=== PATIENT | male | born 1960 | race Caucasian/White ===

== ENCOUNTER 2022-08-27 09:41 | Outpatient (CLI) | payer MEDICAID, SELFPAY ==
[2022-08-27 15:21] LABS: Albumin* 4.5 g/dL (3.3-5.0); Chloride* 105 mmol/L (96-114); Potassium* 4.8 mmol/L (3.6-5.1); Sodium* 140 mmol/L (135-149)
[2022-08-27 15:23] LABS: Creatinine* 0.7 mg/dL (0.5-1.5); Estimated Glomerular Filt Rate 104 ml/min
[2022-08-27 15:24] LABS: Alanine Aminotransferase* 33 U/L (4-50); Alkaline Phosphatase* 74 U/L (40-150); Aspartate Amino Transferase* 36 U/L (12-35); Bilirubin Total* 0.8 mg/dL (0.1-1.5); Blood Urea Nitrogen* 15 mg/dL (7-30); Carbon Dioxide* 29 mmol/L (20-32); Glucose* 92 mg/dL (60-115); Total Protein* 7.3 g/dL (6.0-8.3); Triglycerides* 178 mg/dL (40-149)
[2022-08-27 15:25] LABS: Calcium* 9.2 mg/dL (8.4-10.6); HDL Cholesterol* 40 mg/dL (>=40)
[2022-08-27 15:52] LABS: PSA Screen* 0.34 ng/mL (0.10-4.00)
[2022-08-28 19:05] LABS: Cholesterol* 216 mg/dL (90-199); LDL Cholesterol Calculated 140 mg/dL (<100)
== END 2022-08-27 09:42 | disposition home or self-care (01) ==
PROVIDERS: PCP Family Medicine; Visit Provider Family Medicine
DX: Z00.00 Encounter for general adult medical examination without abnormal findings (principal); E03.9 Hypothyroidism, unspecified; E78.5 Hyperlipidemia, unspecified; F41.1 Generalized anxiety disorder; Z12.5 Encounter for screening for malignant neoplasm of prostate
CPT/HCPCS: 80053; 80061; 84153; 84443

== ENCOUNTER 2023-08-22 06:18 | Outpatient (CLI) | payer MEDICAID, SELFPAY ==
--- NOTE | 2023-08-22 07:42 | W.ANESCHARGE ---
Anesthesia Charges Start Date/Time Anesthesia Start Date: 08/22/23 Anesthesia Start Time: 07:15 Stop Date/Time Anesthesia Stop Date: 08/22/23 Anesthesia Stop Time: 07:38
== END 2023-08-22 06:19 | disposition home or self-care (01) ==
LOC: OP CLINIC 06:19
PROVIDERS: PCP Family Medicine; Visit Provider Surgery
DX: Z86.010 Personal history of colon polyps (principal)
CPT/HCPCS: 00811; 45385; J2405; J2704

== ENCOUNTER 2023-08-28 09:45 | Outpatient (CLI) | payer MEDICAID, SELFPAY ==
--- OUTSIDE RECORDS SUMMARY | 2023-09-03 11:55 | XMS_ITS | Clinical Summary ---
Author Name Unknown Organization [employer] [facility] Address [place], [place] [address] Care Team Providers Care System Trainer Name Role Phone Huang Souza Tori Of Primary Care Provider Un available Allergies Active Allergy Reactions Criticality Noted Date Comments Codeine Hives 03/14/2005 Oxycodone Itching 09/25/2009 Medications Medication Sig Dispensed Refills Start Date End Date Status MULTI-VITAMIN HP/MINERALS CAP one tablet by mouth once daily 100 0 04/07/2008 Active ibuprofen (ADVIL; MOTRIN) 200 mg tablet Take 2-4 tablets by mouth 4 times daily if needed for Pain. on hold as of 02/27/10 0 02/27/2010 Active fluoxetine (PROZAC) 20 mg capsuleIndications:V itamin D deficiency Take 1 capsule by mouth every morning. 90 capsule 1 02/27/2010 Active doxepin (SINEQUAN) 10 mg capsule Take 1 capsule by mouth at bedtime. 0 07/09/2016 Active levothyroxine (SYNTHROID) 88 mcg tablet Take 88 mcg by mouth once daily. 3 06/19/2018 Active Active Problems Problem Noted Date Diagnosed Date S/P complete repair of rotator cuff 10/16/2009 Alcohol withdrawal 04/06/2008 Overview: Alcohol Withdrawal Suicidal ideation 04/06/2008 Overview: Suicidal Ideation Unspecified drug or medicina l substance causing adverse effect in therapeutic use(E947.9) 04/06/2008 Overview: Anaphylactic Reaction Depression 04/06/2008 Tobacco use disorder 04/06/2008 Resolved Problems Problem Noted Date Diagnosed Date Resolved Date Left shoulder pain 08/23/2009 0 Rotator cuff (capsule) sprain 09/17/2005 10/16/2009 Pain in joint, shoulder region 04/22/2005 10/16/2009 Encounters Date Type Department Care Team Description 08/22/2023 Lab Requisition [facility] [phone] Tiffanie Leslie MD from Last 3 Months Immunizations Name Administration Dates Next Due COVID-19 vaccine ([employer] 30mcg/0.3mL) Brett FMDV 12/28/2020,12/07/2020 Tdap 02/07/2016 Family History Medical History Relation Name Comments Alcohol/Drug Father Alcohol/Drug Mother Relation Name Status Comments Father Mother Social History Tobacco Use Types Packs/Day Years Used Date Smoking Tobacco: Former Cigarettes 0.5 27 0 08/25/1979 - 08/25/2006 Smokeless Tobacco: Current Chew Alcohol Use Standard Drinks/Week Comments No 0 (1 standard drink = 0.6 oz pur e alcohol) Sex and Gender Information Value Date Recorded Sex Assigned at Not on file Gender Identity Not on file Sexual Orientation Not on file Obstetrics History Last Filed Vital Signs Vital Sign Reading Time Taken Comments Blood Pressure 104/68 12/23/2018 11:28 AM CDT Pulse 78 12/23/2018 11:28 AM CDT Temperature 36.7 ??C (98.1 ??F) 08/15/2018 8:36 PM CS T Respiratory Rate 16 12/23/2018 11:28 AM CDT Oxygen Saturation 94% 08/15/2018 8:36 PM TECHNICAL PLANNER Inhaled Oxygen Concentration - - Weight 88.9 kg (196 lb) 12/23/2018 11:28 AM CDT Height 170.2 cm (5' 7.01) 12/23/2018 11:28 AM C DT Body Mass Index 30.69 12/23/2018 11:28 AM CDT Plan of Treatment Health Maintenance Due Date Last Done Comments Depression screening for age 12+ 1971 HIV for age 15-65 1974 Hepatitis C screening for ag e 18-79 1977 Colonoscopy through age 75 2004 Zoster (shingles) series for age 50+ (1 of 2) 2009 Lipids for age 45-75 09/25/2014 09/25/2009 BMI (ht and wt on same day) for age 18+ 12/24/2019 12/23/2018, 11/20/2018 COVID-19 vaccine series ( season) 2023 12/28/2020, 12/07/2020 Influenza for age 50-64 04/25/2023 Tetanus booster 02/06/2026 02/07/2016 Tdap Completed 02/07/2016 Pneumococcal series for age 6-64 Aged Out No longer eligible b ased on patient's age to complete this topic Medical Devices Implanted Type Area Research And Development Tester Device Identifier Shelf Expiration Date Model / Serial / Lot Ancr Quick Rotator Cuff Plusds - [id number] Implanted:Qty: 1 on 10/11/2009 at [facility] Left: Shoulder [employer] 03/25/2012 [id number]# / / [id number] Ancr Quick Rotator Cuff Plusds - [id number] Implanted:Qty: 2 on 10/11/2009 at [facility] Left: Shoulder [employer] 05/25/2012 [id number]# / / [id number] Jacket Graft 4x7cm 2mm Thick [employer] Extreem - [id number] Implanted:Qty: 1 on 03/05/2010 at [facility] [employer] [id number] / / [id number] Procedures Procedure Name Priority Date/Time Associated Diagnosis Comments LAB TRACKING EVENT Routine 08/22/2023 7: 32 AM TECHNICAL PLANNER PATH TISSUE EXAM Routine 08/22/2023 7:32 AM TECHNICAL PLANNER from Last 3 Months Results * LAB TRACKING EVENT (08/22/2023 7:32 AM TECHNICAL PLANNER) Other (Other) Client Collect / Unknown 08/22/2023 7:32 AM TECHNICAL PLANNER 08/22/2023 6:10 PM TECHNICAL PLANNER Tiffanie Leslie MD LAB BILL ONLY [facility] [address] [place] [phone], * PATH TISSUE EXAM (08/22/2023 7:32 AM TECHNICAL PLANNER) Case Report Pathology Report ?Case: [id number] ? Authorizing Provider: ??Tiffanie Leslie MD ?Collected: ? 08/22/2023 0732 ? Ordering Location: ? [facility] ?Received: ?08/22/2023 1840 ? Pathologist: ? Luis Ingram MD ? Specimen: ?Sigmoid Biopsy ? 08/26/2023 12:39 PM TECHNICAL PLANNER [facility] Final Diagnosis A) COLON, SIGMOID, POLYPECTOMIES: 1. Hyperplastic polyps (2) 08/26/2023 12:39 PM TECHNICAL PLANNER [facility] [facility] Clinical Information History of colon polyp(s) 08/26/2023 12:39 PM TECHNICAL PLANNER [facility] [facility] Gross Description A) Received in formalin are 3 leonard mucosal fragments ranging from 2 mm to 6 mm in greatest dimension, which are entirely submitted in one cassette. It is labeled with the patient's name and designated colon-sigmoid polyps. Karin Dickson 08/22/2023 6:47 PM 08/26/2023 12:39 PM TECHNICAL PLANNER [facility] Microscopic Description The final diagnosis is based on microscopic examination of appropriate sections of all specimens. 08/26/2023 12:39 PM TECHNICAL PLANNER [facility] Additional Information Interpreted at [facility] Laboratory - [address] [facility] [address], [place] [address] 08/26/2023 12:39 PM TECHNICAL PLANNER [facility] Other (Sigmoid Biopsy) 08/22/2023 7:32 AM TECHNICAL PLANNER 08/22/2023 6:40 PM TECHNICAL PLANNER Tiffanie Leslie MD PATHOLOGY/CYTOLOGY [facility] [address] [place] [address], [place] from Last 3 Months Advance Directives Latest Code Status on File Code Status Date Activated Date Inactivated Comments Full Code 03/05/2010 12:05 PM 03/06/2010 2:26 AM Code Status History Code Status Date Activated Date Inactivated Comments Full Code 10/11/2009 2:55 PM 10/11/2009 6:38 PM Full Code 10/11/2009 11:47 AM 10/11/2009 2:55 PM Full Code 04/06/2008 8:14 AM 04/07/2008 4:53 PM Discu ssed with son in ER as patient unable Care Teams System Trainer Relationship Specialty Start Date End Date Huang Souza Phys Of PCP - General 08/15/18
== END 2023-08-28 09:46 | disposition home or self-care (01) ==
LOC: NFLDREF 09-03 11:53
PROVIDERS: PCP Family Medicine; Referring Provider Family Medicine; Visit Provider Family Medicine
DX: E78.5 Hyperlipidemia, unspecified (principal); E03.9 Hypothyroidism, unspecified
CPT/HCPCS: 80053; 80061; 84443

== ENCOUNTER 2024-11-25 07:54 | Outpatient (CLI) | payer MEDICARE, SELFPAY | END 2024-11-25 07:55 | disposition home or self-care (01) | LOC: NFLDREF 11-29 19:03 | PROVIDERS: PCP Family Medicine; Referring Provider Family Medicine; Visit Provider Family Medicine | DX: Z12.5 Encounter for screening for malignant neoplasm of prostate (principal) | CPT/HCPCS: G0103 ==

== ENCOUNTER 2025-03-08 08:09 | Outpatient (CLI) | payer MEDICARE, SELFPAY | END 2025-03-08 08:10 | disposition home or self-care (01) | LOC: NFLDREF 03-10 12:50 | PROVIDERS: PCP Family Medicine; Referring Provider Family Medicine; Visit Provider Family Medicine | DX: E78.5 Hyperlipidemia, unspecified (principal) | CPT/HCPCS: 80061; 84450; 84460 ==